=== PATIENT | female | born 2000 | race Caucasian/White ===

== ENCOUNTER 2024-06-22 07:27 | Emergency (ER) | payer SELFPAY ==
[~2024-06-22] VITALS: Ht 152.4 cm; Wt 59.0 kg
[2024-06-22 07:47] VITALS: BP 106/63; PULSE 82; RESP 16; TEMP 98.3; O2SAT 99
[2024-06-22] MEDS ORDERED: ACETAMINOPHEN 325MG TABLET PO ONE (10:00)
== END 2024-06-22 10:33 | disposition left against medical advice (07) ==
LOC: ER 07:27
DX: R05.9 Cough, unspecified (principal); R51.9 Headache, unspecified; R06.02 Shortness of breath; R11.2 Nausea with vomiting, unspecified; H61.22 Impacted cerumen, left ear
CPT/HCPCS: 93005; 99283